=== PATIENT | male | born 1945 | race Caucasian/White ===

== ENCOUNTER 2017-10-22 17:31 | Emergency (ER) | payer MEDICARE ==
[2017-10-22 17:50] VITALS: TEMP 98
--- NOTE | 2017-10-22 18:27 | ED.PDOC ---
History of Present Illness - General Chief Complaint: General Stated Complaint: numbness in left ;eg Time Seen by Provider: 10/22/17 17:52 Source: patient, family Exam Limitations: no limitations - History of Present Illness Initial Comments: H/O LEGS FEELING COLD TO THE TOUCH AND WEAK LEGS/FEET. H/O 3 BACK SURGERIES. PT WAS OUTSIDE WORKING THIS AM FOR 1 HR. NOW THIS AFTERNOON HIS LLE HAS WORSENED FOOT DROP THAN NL. CHRONICALLY USES A CANE. PT WENT TO [facility] AND THEY WANTED TO R/O STROKE THUS SENT TO ER. PT DENIES ANY OTHER MOTOR OR SENSORY SX THAN LLE. Severity: moderate Improving Factors: nothing Worsening Factors: nothing Associated Symptoms: denies symptoms Allergies/Adverse Reactions: Allergies anti rattlesnake venum Allergy (Unknown, Uncoded 07/17/13 09:23) Home Medications: Ambulatory Orders Lisinopril 20 mg PO AM #0 08/11/13 Sertraline HCl 50 mg PO AM #0 08/11/13 Review of Systems - Review of Systems Constitutional: States: no symptoms reported EENTM: States: no symptoms reported Respiratory: States: no symptoms reported Cardiology: Denies: chest pain, edema, palpitations, syncope Gastrointestinal/Abdominal: States: no symptoms reported Genitourinary: States: no symptoms reported Musculoskeletal: States: other - NO PAIN IN LLE OR RLE. . Denies: joint pain, joint swelling Skin: States: other - CHRONICALLY COLD TO TOUCH, UNCHANGED. Neurological: States: pre-existing deficit, weakness. Denies: numbness, paresthesia Endocrine: States: no symptoms reported Hematologic/Lymphatic: States: no symptoms reported All other Systems: Reviewed and Negative Past Medical History (General) - Patient Medical History Hx Seizures: No Hx Stroke: No Hx Asthma: No Hx of COPD: No Hx Cardiac Disorders: No Hx Congestive Heart Failure: No Hx Pacemaker: No Hx Hypertension: Yes Hx Diabetes: No Hx Gastroesophageal Reflux: Yes Hx MRSA: No - Vaccination History Hx Influenza Vaccination: No Hx Pneumococcal Vaccination: No - Social History Hx Tobacco Use: Yes Hx Alcohol Use: - stated, "3 beers/day" Hx Substance Use: - Dips Hx Physical Abuse: No Hx Emotional Abuse: No Family Medical History - Family History Father Family History: Unknown Living Status: Unknown Physical Exam - Physical Exam General Appearance: Alert, Comfortable Ears, Nose, Throat: hearing grossly normal, normal ENT inspection Neck: full range of motion Respiratory: chest non-tender, lungs clear, normal breath sounds Cardiovascular/Chest: normal peripheral pulses, regular rate, rhythm, no edema Peripheral Pulses: radial,right: 2+, radial,left: 2+, dorsalis pedis,right: 1+, dorsalis pedis,left: 1+, posterior tibialis,right: 1+, posterior tibialis,left: 1+ Gastrointestinal/Abdominal: non tender, soft Extremity: normal range of motion, non-tender, no pedal edema, no calf tenderness, normal capillary refill, other - NL RLE EXAM MOTOR AND SENSORY. LLE EXAM SENSORY NL; PLANTAR FLEXION 5/5; DORSIFLEXION 4/5. BUE MOTOR 5/5 AND SENSORY NL. NTTP, NEG NATIVIDAD'S SIGN. Neurologic: diesel engine mechanic II-XII nml as tested, alert, normal mood/affect, oriented x 3, abnormal gait - AMBULATES WITH CANE. DTR: 3+: Patellar, left, Patellar, right Skin Exam: normal color, other - BLE COLD TO TOUCH, CHRONIC PER PT AND . Lymphatic: no adenopathy Progress - Results/Orders Results/Orders: HEAD CT NEG FOR ACUTE STROKE. I HAD A LOW CLINICAL SUSPICION, GIVEN THAT THIS IS A CHRONIC PROBLEM FOR HIM. HE HAS CHRONIC LLE WEAKNESS WHICH WAS WORSENED TODAY FROM BEING OUT IN THE COLD WEATHER SO I SUSPECT THE ETX IS EXACERBATION OF POOR CIRCULATION. I AM REFERRING HIM TO PCP FOR POSSIBLE BRAIN MRI AND POSSIBLE FURTHER EVALUATION FROM A VASCULAR SURGEON. IN ADDITION TO PALPATING, I ALSO DOPPLERED LLE DP/PT PULSES AND THEY WERE TRI-PHASIC. AGAIN, NO PAIN OR SOB; NOTHING TO CAUSE CONCERN FOR A DVT. SAFE FOR DC TO HOME WITH FOLLOW-UP. Departure - Departure Clinical Impression: Weakness of left lower extremity Disposition: Discharge to Home or Self Care Condition: Fair Departure Forms: ED Discharge - Pt. Copy, Patient Portal Self Enrollment Instructions: DI for Muscle Weakness Diet: resume usual diet Activity: increase activity as tolerated Referrals: ROCIO EDWARDS IV NURSING ASSISTANT [Primary Care Provider] - 1-2 Days Home Medications: Ambulatory Orders Lisinopril 20 mg PO AM #0 08/11/13 Sertraline HCl 50 mg PO AM #0 08/11/13 Additional Instructions: Please see your regular doctor this week, who may arrange further out-patient testing or therapy for your symptoms.
--- NOTE | 2017-10-22 19:16 | CT ---
PROCEDURE: Head HISTORY: LLE WEAKNESS Indication: Same as above Comparison: None Technique: CT of the head was done without intravenous contrast was done in the orthogonal planes. This exam was performed according to our departmental dose-optimization program, which includes automated exposure control, adjustment of the mA and/or KV according to the patient's size and/or use of iterative reconstruction technique. FINDINGS: There is no intracranial hemorrhage, midline shift mass effect or acute focal infarct. If clinical concern exists regarding an acute ischemic/vascular pathology being responsible for patient's symptomatology, an MRI of the brain is more sensitive than the current study, in ruling out such a possibility. There is good leung/white matter differentiation. The ventricular system is normal. The mastoid air cells are unremarkable . The paranasal sinuses show changes of chronic sinusitis . There is no visualization of acute fractures involving the calvarium or the skull base. IMPRESSION: There is no acute intracranial abnormality. Electronically signed by: Glenn Beverly MD 10/22/2017 7:15 PM [facility] Workstation: [id number]
[2017-10-22 20:11] VITALS: BP 165/80; O2SAT 97
== END 2017-10-22 20:11 | disposition home or self-care (01) ==
LOC: ER 17:31
DX: M62.81 Muscle weakness (generalized) (principal); I10 Essential (primary) hypertension; Z87.891 Personal history of nicotine dependence

== ENCOUNTER → 2018-01-01 | Outpatient (CLI) | payer MEDICARE ==
--- NOTE | 2018-01-02 07:59 | MRI ---
EXAM DESCRIPTION: Lumbar Spine w/o Contrast MRI. CLINICAL HISTORY: RADICULITIS DUE TO DISPLACEMENT OF LUMBAR DISC COMPARISON: MRI scan lumbar spine 02/04/2013. TECHNIQUE: Multiplanar, multiple standard sequences, non contrast MRI, lumbar spine. FINDINGS: L5-S1: Again noted is partial left laminectomy with granulation tissue exhibiting mass effect on the left ventral thecal sac and the descending left S1 nerve root and also on the left subarticular recess. No significant change since the prior study. Bilateral facets are stable. Anterior Modic type II endplate reactive changes anterior disc bulge and anterior spurs are stable. Near stenosis of the left foramen. Right foramen and right side of the canal are patent. Left anterior and lateral and posterior L5 Modic type II endplate reactive changes. L4-5: Disc desiccation. Minimal anterior bulging and endplate ridging. Trace retrolisthesis. Posterior broad-based 4 mm disc bulge. Bilateral flavum ligament hypertrophy and mild right facet arthrosis. Borderline mild canal stenosis. Bilateral moderate foraminal narrowing. Bright T2 signal in the right intraforaminal disc margin abutting the right L4 nerve. Well-circumscribed bright T1 and T2 signal in the right posterior superior L4 vertebral body. L3-4: Disc desiccation minimal anterior bulging and endplate ridging. Trace retrolisthesis. No posterior disc bulge. Bilateral flavum ligament hypertrophy and facet joint effusion. Moderate canal narrowing. Bilateral foramina are patent. L2-3: Marked disc space loss with minimal residual disc hydration. Diffuse Modic type II endplate reactive changes. Anterior disc bulge and endplate ridging. Trace retrolisthesis with posterior broad-based disc osteophyte complex bulging 4 mm and abutting the thecal sac. Minimal encroachment bilaterally on the subarticular lateral recesses and descending L3 nerves. Mild canal stenosis. Moderate left foraminal narrowing and mild right foraminal narrowing. L1-2: Minimal disc desiccation minimal anterior Modic type II endplate reactive changes and bulging disc and endplate ridging. Disc space maintained. Bilateral foramina are patent. Minimal arthrosis in the right facet. Otherwise posterior elements are unremarkable. No canal stenosis. T12-L1: Minimal disc space loss anterior disc bulge and endplate ridging and minimal Modic type II endplate reactive changes. No significant disc bulge posterior. Canal and foramina are patent. Conus terminates at this level. No significant scoliosis. Paravertebral soft tissues show minimal muscle atrophy. Ectasia of the abdominal aorta. Ingenious marrow replacement in the sacrum and iliac bones.. Normal marrow signal in the remaining vertebral bodies and the posterior elements. Vertebral bodies are not compressed at any level. IMPRESSION: 1. Stable left partial laminectomy at L5 and granulation tissue left posterior L5-S1 disc space and facet with mass effect on the ventral left thecal sac and the descending left S1 nerve and left subarticular recess. Stable spondylosis. 2. Increasing posterior L4-5 disc bulge with borderline mild canal stenosis. Annular fissure in the right posterior disc. Hemangioma in the L4 vertebral body is stable. 3. Increasing disc space loss at L2-3 and progressive spondylosis since the prior study. Multifactorial mild canal stenosis. Possible encroachment on the bilateral descending L3 nerves in the subarticular recesses. Correlate for bilateral L3 radiculopathy.. Electronically signed by: Ramana Qureshi MD 01/02/2018 7:57 AM CDT
== END ==
LOC: MRI 07:07
PROVIDERS: ATTEND Nurse Practitioner Family
DX: M51.27 Other intervertebral disc displacement, lumbosacral region (principal)

== ENCOUNTER → 2018-04-08 | Outpatient (CLI) | payer MEDICARE | LOC: GMAM 10:41 | PROVIDERS: ATTEND Family Medicine | DX: Z12.5 Encounter for screening for malignant neoplasm of prostate (principal) ==

== ENCOUNTER → 2018-05-12 | Outpatient (CLI) | payer MEDICARE | LOC: GMAM 14:24 | PROVIDERS: ATTEND Family Medicine | DX: R79.9 Abnormal finding of blood chemistry, unspecified (principal); R10.13 Epigastric pain; Z12.5 Encounter for screening for malignant neoplasm of prostate | CPT/HCPCS: 84439; 84443; G0103 ==

== ENCOUNTER 2018-05-30 13:00 | Emergency (ER) | payer MEDICARE ==
[2018-05-30 13:26] VITALS: TEMP 98.5
--- NOTE | 2018-05-30 13:39 | ED.PDOC ---
History of Present Illness - General Chief Complaint: General Stated Complaint: dizziness Time Seen by Provider: 05/30/18 13:39 Source: patient Exam Limitations: no limitations - History of Present Illness Initial Comments: Quentin Rodríguez 72 y/o male stated that felt dizzy as he look up the ceiling today felt also cold and clammy no passing out no N/V no blurry vision no tinnitus .But stated wears hearing aids.No dysartrhia,no weakness.[place] better on arrival here no longer feeling dizzy. Timing/Duration: 1-3 hours Severity: moderate Improving Factors: nothing Worsening Factors: other - see hpi Associated Symptoms: other - see hpi Allergies/Adverse Reactions: Allergies anti rattlesnake venum Allergy (Unknown, Uncoded 07/17/13 09:23) Home Medications: Ambulatory Orders Gabapentin 300 mg PO BEDTIME 05/30/18 Lisinopril 10 mg PO AM 05/30/18 Meclizine HCl [Meclizine 25] 50 mg PO TID PRN #30 tab 05/30/18 Omeprazole [Prilosec Cap] 20 mg PO ACBK 05/30/18 Sertraline HCl 50 mg PO BEDTIME 05/30/18 Review of Systems - Review of Systems Constitutional: States: no symptoms reported EENTM: States: no symptoms reported Respiratory: States: no symptoms reported Cardiology: States: no symptoms reported Gastrointestinal/Abdominal: States: no symptoms reported Genitourinary: States: no symptoms reported Musculoskeletal: States: no symptoms reported Neurological: States: other - dizzy Endocrine: States: no symptoms reported Past Medical History (General) - Patient Medical History Hx Seizures: No Hx Stroke: No Hx Asthma: No Hx of COPD: No Hx Cardiac Disorders: No Hx Congestive Heart Failure: No Hx Pacemaker: No Hx Hypertension: Yes Hx Diabetes: No Hx Gastroesophageal Reflux: Yes Hx MRSA: No Hx Other PMH: Yes - neuropathy Surgical History: other - knee ,back - Vaccination History Hx Influenza Vaccination: No Hx Pneumococcal Vaccination: No - Social History Hx Tobacco Use: Yes Hx Alcohol Use: - stated, "3 beers/day" Hx Substance Use: - Dips Hx Physical Abuse: No Hx Emotional Abuse: No Family Medical History - Family History Father Family History: Unknown Living Status: Unknown Physical Exam - Physical Exam General Appearance: Alert, Comfortable, No apparent distress Eye Exam: bilateral normal Ears, Nose, Throat: normal ENT inspection, normal pharynx, other - edentulous Neck: non-tender, full range of motion, supple Respiratory: chest non-tender, lungs clear, normal breath sounds Cardiovascular/Chest: normal peripheral pulses, regular rate, rhythm, no murmur Peripheral Pulses: radial,right: 2+, radial,left: 2+ Gastrointestinal/Abdominal: normal bowel sounds, non tender, soft, no organomegaly Back Exam: normal inspection, no CVA tenderness, no vertebral tenderness Extremity: non-tender, no pedal edema, no calf tenderness Neurologic: dry sander II-XII nml as tested, no motor/sensory deficits, alert, oriented x 3, other - pronator drift negative Skin Exam: normal color, warm/dry Lymphatic: no adenopathy Progress - Progress Progress: 05/30/18 15:23 Vital Signs - 8 hr 05/30/18 05/30/18 13:18 14:27 Temperature 98.5 F Pulse Rate [ 65 60 Right Brachial] Respiratory 20 16 Rate Blood Pressure 131/82 155/99 [Right Arm] O2 Sat by Pulse 96 96 Oximetry - Results/Orders Results/Orders: 05/30/18 13:45 EKG STAT Laboratory Results - last 24 hr 05/30/18 05/30/18 05/30/18 13:50 14:59 15:33 WBC 7.5 RBC 4.79 Hgb 16.0 Hct 47.8 MCV 99.7 H MCH 33.3 H MCHC 33.4 RDW 13.4 Plt Count 92 L MPV 11.5 H Absolute Neuts (auto) 3.70 Absolute Lymphs (auto) 2.60 Absolute Monos (auto) 0.80 Absolute Eos (auto) 0.20 Absolute Basos (auto) 0.10 Neutrophils % 50.1 Lymphocytes % 35.3 Monocytes % 10.8 H Eosinophils % 2.8 Basophils % 1.0 PT 9.4 INR 0.94 PTT (SP) 23.4 Sodium 134 L Potassium 4.4 Chloride 101 Carbon Dioxide 25 Anion Gap 12.4 BUN 17 Creatinine 1.00 BUN/Creatinine Ratio 17.0 Random Glucose 118 H Serum Osmolality 270.9 L Calcium 9.3 Magnesium 2.2 Total Bilirubin 0.7 Direct Bilirubin < 0.1 Indirect Bilirubin 0.6 AST 20 ALT 21 Alkaline Phosphatase 52 Creatine Kinase 101 CK-MB (CK-2) 3.1 CK-MB (CK-2) % Not Reportable Troponin I < 0.02 < 0.02 Serum Total Protein 7.3 Albumin 4.2 Urine Color Yellow Urine Appearance Clear Urine pH 5.5 Ur Specific Shelby <= 1.005 Urine Protein Negative Urine Glucose (UA) Negative Urine Ketones Negative Urine Blood Negative Urine Nitrite Negative Urine Bilirubin Negative Urine Urobilinogen 0.2 Ur Leukocyte Esterase Negative Urine RBC 0 Urine WBC 0 Ur Epithelial Cells 0 Urine Bacteria 0 - EKG/XRAY/CT EKG: Sinus, no ST T wave changes Comments: HR-[address] Ordered: Yes - no acute abnormalities Departure - Departure Clinical Impression: Vertigo, History of peripheral neuropathy Time of Disposition: 16:30 Disposition: Discharge to Home or Self Care Condition: Fair Departure Forms: ED Discharge - Pt. Copy, Patient Portal Self Enrollment Instructions: Vestibular Exercises, Vertigo (a Type of Dizziness) (DC) Referrals: Carl Norman MD [Primary Care Provider] - 1-2 Weeks Prescriptions: Meclizine HCl [Meclizine 25] 50 mg PO TID PRN #30 tab PRN Reason: Dizziness Home Medications: Ambulatory Orders Gabapentin 300 mg PO BEDTIME 05/30/18 Lisinopril 10 mg PO AM 05/30/18 Meclizine HCl [Meclizine 25] 50 mg PO TID PRN #30 tab 05/30/18 Omeprazole [Prilosec Cap] 20 mg PO ACBK 05/30/18 Sertraline HCl 50 mg PO BEDTIME 05/30/18 Additional Instructions: Return to emergency room as needed;Followup with primary Md 02 june 2018 continue with all home medication
[2018-05-30] MEDS ORDERED: SODIUM CHLORIDE 0.9% 500ML 500 ML IVS ONE (13:41)
--- NOTE | 2018-05-30 14:36 | CT ---
EXAM DESCRIPTION: Head CLINICAL HISTORY: dizzy COMPARISON: Previous head CT October 22, 2017 TECHNIQUE: Noncontrast head CT was performed with routine protocol. FINDINGS: Normal leung-white matter differentiation. Ventricles and sulci are normal for age. No change since the previous study. No high density hemorrhage, focal edema or shift of the midline. No sulcal effacement. Normal orbital contents. Basilar cisterns appear clear. Intact calvarium with no fracture or lytic lesion. Normal aeration of tympanic cavities and mastoid air cells. No fluid levels in the paranasal sinuses. Skull base appears intact. Symmetrical internal auditory canals. Coronal and sagittal reformatted images confirm the findings. IMPRESSION: No acute intracranial pathologic process. This exam was performed according to our departmental dose-optimization program, which includes automated exposure control, adjustment of the mA and/or kV according to patient size and/or use of iterative reconstruction technique. Total DLP equals 967.47 mGycm. Electronically signed by: Saul Mendez MD 05/30/2018 2:35 PM CDT
[2018-05-30 16:48] VITALS: BP 149/81; O2SAT 98
== END 2018-05-30 16:48 | disposition home or self-care (01) ==
LOC: ER 13:00
DX: R42 Dizziness and giddiness (principal); G62.9 Polyneuropathy, unspecified; I44.0 Atrioventricular block, first degree; I10 Essential (primary) hypertension; K21.9 Gastro-esophageal reflux disease without esophagitis; F17.220 Nicotine dependence, chewing tobacco, uncomplicated; Z79.899 Other long term (current) drug therapy; Z88.8 Allergy status to other drugs, medicaments and biological substances
CPT/HCPCS: 36415; 70450; 80048; 80076; 81001; 82550; 82553; 84484; 85025; 85610; 85730; 93005; J7040

== ENCOUNTER → 2019-03-30 | Outpatient (CLI) | payer MEDICARE ==
--- NOTE | 2019-03-30 10:01 | CT ---
EXAM DESCRIPTION: Chest w/o Contrast CLINICAL HISTORY: 73 years Male, ABNL CHEST XRAY DONE ON 03-24-19 COMPARISON: Prior chest x-ray dated 03/24/2019. TECHNIQUE: Contiguous thin section axial images through the chest were obtained without the administration of intravenous contrast. Sagittal and coronal reconstructions were reviewed. FINDINGS: The visualized thyroid gland and supraclavicular region appear normal. Few subcentimeter mediastinal lymph nodes are identified. No abnormally enlarged axillary or hilar lymphadenopathy. Trachea is midline and the central tracheobronchial tree is patent. Focal atelectasis is noted in the right middle lobe adjacent to the cardiophrenic angle. This probably corresponds to the suspected mass identified on prior chest radiograph. No definite nodule is visualized. Mild subsegmental atelectasis is noted in the bilateral lower lobes. No evidence of pleural effusions. The heart is normal in size with no pericardial effusion. Mild aneurysmal dilatation of the proximal descending thoracic aorta measuring up to 3.2 cm. Mild atherosclerotic disease is identified. The superior vena cava is normal in size and caliber. Mild to moderate coronary artery atherosclerosis. The esophagus appears normal throughout its visualized length. The liver demonstrates fatty infiltration. No other abnormality is noted in the imaged upper abdomen. [id number] degenerative changes identified throughout the visualized spine. IMPRESSION: 1. Focal atelectasis is identified in the right middle lobe adjacent to the cardiophrenic angle. This corresponds to the abnormality identified on prior chest radiograph. No definite nodule is visualized. 2. Mild aneurysmal dilatation of the proximal descending thoracic aorta measuring up to 3.2 cm in greatest dimension. Follow-up CT chest is recommended in one year to document stability. This exam was performed according to our departmental dose-optimization program, which includes automated exposure control, adjustment of the mA and/or kV according to patient size and/or use of iterative reconstruction technique. Electronically signed by: Aleksandra Gross MD 03/30/2019 9:58 AM CDT
== END ==
LOC: CT 08:04
PROVIDERS: ATTEND Family Medicine
DX: J98.11 Atelectasis (principal); I71.2 Thoracic aortic aneurysm, without rupture

== ENCOUNTER → 2019-04-08 | Outpatient (CLI) | payer MEDICARE ==
--- NOTE | 2019-04-08 15:03 | CT ---
EXAM DESCRIPTION: Abdomen/Pelvis w/Contrast: Computed Tomography. CLINICAL HISTORY: 73 years Male Thrombocytopenia . Liver steatosis on previous chest CT scan. COMPARISON: CT scan of the chest 03/30/2019. TECHNIQUE: Spiral-axial scans at 5 x 5 mm intervals through the abdomen and pelvis, after nonionic IV contrast and water-soluble oral contrast. Coronal and sagittal 2.0 mm reconstructions. No delayed scans. No adverse reactions. Total Exam DLP: 1263.20 mGy-cm. This exam was performed according to our departmental dose-optimization program which includes automated exposure control, adjustment of the mA and/or kV according to patient size and/or use of iterative reconstruction technique; to reduce radiation dose to as low as reasonably achievable (ALARA). FINDINGS: Liver, Stomach, Spleen, Adrenal Glands: Small subcentimeter cyst abutting the gallbladder fossa and abutting the capsule of the liver. Normal size. No abnormal enhancement. Stomach negative. Solid organs are unremarkable. Pancreas, Gallbladder, Ducts: Gallbladder and ducts negative. Minimal fatty infiltration of the pancreas. Kidneys and Ureters: Nodularity and thickening of the superior lateral cortex of the right kidney. 2 cm cyst in the upper collecting system. No hydronephrosis or radiodense stones bilaterally. Mesentery: Negative. Aorta: Moderate atherosclerotic calcification. Small Bowel: Unremarkable. Terminal Ileum/Cecum: Normal caliber of these organs in the appendix. Normal density of surrounding fat. Colon: Diffuse fecal material. Moderate redundancy of the sigmoid colon. Few diverticula around the splenic flexure with no complications. Pelvic Organs: Enlarged prostate gland measuring 5.2 x 4.7 cm in the axial plane and 5.2 cm craniocaudal. Bilateral calcifications. Pelvic calcifications. Minimal thickening of the urinary bladder wall. Spine and Bony Pelvis: Spondylosis and disc space loss L5-S1, and L2-L3, and several levels of the thoracic spine. Bilateral hip joint arthrosis. Abdominal Wall/Back Soft Tissues: Diastases of the umbilicus but not containing bowel. Small fatty left inguinal hernia not containing bowel. IMPRESSION: 1. Small subcentimeter cyst subcapsular in the right hepatic lobe abutting the gallbladder fossa. No abnormal enhancement. This examination does not confirm hepatic steatosis. Minimal fatty infiltration of the pancreas. Normal ducts. Smooth capsule. No ascites. 2. Scarring and loss of cortex superior lateral right kidney may be related to prior infarct. 2 cm intrarenal cyst. Otherwise negative. 3. Mild diverticulosis around the splenic flexure. Mild to moderate constipation in the colon. 4. Enlarged prostate gland. Minimal thickening of the urinary bladder wall. Electronically signed by: Ramana Qureshi MD 04/08/2019 3:01 PM CDT
== END ==
LOC: LAB.O 08:25
PROVIDERS: ATTEND Internal Medicine Hematology & Oncology
DX: J98.11 Atelectasis (principal); I77.810 Thoracic aortic ectasia; D69.9 Hemorrhagic condition, unspecified

== ENCOUNTER → 2019-04-16 | Outpatient (CLI) | payer MEDICARE | LOC: GMAM 16:58 | PROVIDERS: ATTEND Family Medicine | DX: R97.20 Elevated prostate specific antigen [PSA] (principal) ==

== ENCOUNTER → 2019-09-17 | Outpatient (CLI) | payer MEDICARE | LOC: GMAM 15:03 | PROVIDERS: ATTEND Family Medicine | DX: R94.6 Abnormal results of thyroid function studies (principal); I10 Essential (primary) hypertension; R97.20 Elevated prostate specific antigen [PSA] ==

== ENCOUNTER → 2019-10-22 | Outpatient (CLI) | payer MEDICARE | LOC: GMAM 15:10 | PROVIDERS: ATTEND Family Medicine | DX: R94.6 Abnormal results of thyroid function studies (principal); R94.2 Abnormal results of pulmonary function studies ==

== ENCOUNTER → 2020-07-27 | Outpatient (CLI) | payer MEDICARE | LOC: GMAM 14:30 | PROVIDERS: ATTEND Family Medicine | DX: R06.02 Shortness of breath (principal); R53.83 Other fatigue; E78.2 Mixed hyperlipidemia; I10 Essential (primary) hypertension ==

== ENCOUNTER → 2020-08-05 | Outpatient (CLI) | payer MEDICARE ==
--- NOTE | 2020-08-05 14:22 | MRI ---
EXAM DESCRIPTION: Brain w/oContrast CLINICAL HISTORY: UNSPECIF SYMPTOMS AND SIGNS INVOLVING COGNITIVE FUNCTIONS COMPARISON: CT head 05/30/2018 TECHNIQUE: Non contrast MRI of the brain is performed according to our usual protocol including multiplanar multi sequence technique. FINDINGS: Susceptibility artifact from a piece of metal in the patient's frontal scalp region which limits evaluation on some sequences. No definite evidence of hemorrhage, mass effect, restricted diffusion, or acute infarction. There is normal configuration of the ventricles and sulci. Moderate generalized volume loss. Mild T2/FLAIR hyperintensities in the supratentorial white matter. No abnormal extra-axial fluid collections are present. Normal flow voids are present. The calvarium is intact. Visualized paranasal sinuses and mastoid air cells are clear. IMPRESSION: 1. Slightly limited evaluation due to artifact. No acute intracranial abnormality. 2. Senescent changes. Electronically signed by: Francisco Hyman MD 08/05/2020 2:20 PM CDT
--- NOTE | 2020-08-05 15:50 | CT ---
EXAM DESCRIPTION: Chest w/Contrast : Computed Tomography. CLINICAL HISTORY: 74 years Male SHORTNESS OF BREATH COMPARISON: CT scan of the chest without contrast March 2019. TECHNIQUE: Spiral-axial scans at 5 mm intervals through the lungs and thorax with IV contrast. 2.5 mm lung algorithm axial reconstructions. Coronal and sagittal 2.0 Mm reconstructions. No adverse reactions. Total Exam DLP: 809 mGy-cm. This exam was performed according to our departmental dose-optimization program which includes automated exposure control, adjustment of the mA and/or kV according to patient size and/or use of iterative reconstruction technique; to reduce radiation dose to as low as reasonably achievable (ALARA). Nodule measurements under 10 mm are given as mean value of 3 axes diameters. FINDINGS: Lungs and large airways: Minimal subpleural basilar dependent atelectasis bilaterally. Bilateral lower lobe pleural-parenchymal scarring. No abnormal nodules and no mass. No acute or focal infiltrate. Pleural spaces: Bilateral thickening. No acute process. Mediastinum and [place]: Small soft tissue masses with no dominant solid or enhancing mass. Stable since the prior study. Great vessels and Heart: Atherosclerotic calcification aorta with coronary artery calcification. Stable since the prior study. Soft tissues of neck base, axillae, and chest wall: Normal size axillary lymph nodes. No abnormal enhancement and no dominant soft tissue mass. No interval change. Upper abdomen: Normal enhancement of the gallbladder, spleen, adrenal glands and pancreas. Large cyst in the upper pole of the right kidney extending to the collecting system with thinning of the cortex and small radiodense stone. 3 sub-capsular hepatic lesions with unusual contrast enhancement characteristics which may represent hemangiomas. These are visualized on the prior abdomen study in April 2019 with IV contrast but different timing, and appearance. 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 IMPRESSION: 1. Subpleural basilar dependent atelectasis and bilateral lower lobe parenchymal scarring with no abnormal nodules or masses. 2. Unusually enhancing lesions in the liver, which could represent hemangiomas. Recommend follow-up triple phase hepatic CT scan without and with IV contrast or MRI scan of the liver without and with gadolinium IV contrast. Electronically signed by: Ramana Qureshi MD 08/05/2020 3:48 PM CDT
== END ==
LOC: MRI 10:25
PROVIDERS: ATTEND Family Medicine
DX: G31.1 Senile degeneration of brain, not elsewhere classified (principal); R41.9 Unspecified symptoms and signs involving cognitive functions and awareness; J98.11 Atelectasis; J98.4 Other disorders of lung; K76.9 Liver disease, unspecified

== ENCOUNTER → 2020-08-24 | Outpatient (CLI) | payer MEDICARE ==
--- NOTE | 2020-08-24 15:54 | CT ---
EXAM DESCRIPTION: Abdomen/Pelvis w/wo Contrast CLINICAL HISTORY: 74 years Male, other specified disease of liver COMPARISON: 08 April 2019 TECHNIQUE: Transaxial images were obtained with without and with intravenous contrast media and without oral contrast media. Sagittal and coronal reconstruction was performed.This exam was performed according to our departmental dose-optimization program, which includes automated exposure control, adjustment of the mA and/or kV according to patient size and/or use of iterative reconstruction technique. FINDINGS: The lung bases are clear. The exam reveals a peripherally enhancing mass in the dome of the left lobe of the liver in the medial segment consistent with a hemangioma. It fills in completely on delayed imaging. It measures 3 cm in diameter. A second lesion is observed near the gallbladder fossa and measures 1.52 cm in diameter. Its also consistent with a hemangioma. A small cyst is observed in the inferior liver adjacent to the gallbladder measuring 7.4 mm in diameter. The gallbladder is normal in appearance. No biliary ductal dilatation is observed. The spleen is unremarkable. No adrenal masses are detected. The pancreas is normal in appearance. Imaging of the kidneys reveal no evidence of hydronephrosis solid mass or calcification. Peripelvic cysts are observed on the patient's right. Calcific atherosclerotic changes observed in the abdominal aorta without evidence of aneurysmal dilatation. The appendix is identified and is normal in appearance. No free pelvic fluid is observed. Prostatic hypertrophy is noted. A periumbilical hernia is observed containing fat. Degenerative changes are observed in the lumbar spine. IMPRESSION: 1. 2 hemangiomas are observed in the left lobe of liver. 2. A tiny cyst is observed in the inferior aspect of the right lobe of liver adjacent to the gallbladder fossa. 3. Parapelvic cysts is observed on the right kidney 4. Prostatic hypertrophy 5. Periumbilical hernia containing fat Electronically signed by: Girish Vyas MD 08/24/2020 3:53 PM [employer]
== END ==
LOC: CT 08:05
PROVIDERS: ATTEND Family Medicine
DX: K76.89 Other specified diseases of liver (principal); D18.03 Hemangioma of intra-abdominal structures; K42.9 Umbilical hernia without obstruction or gangrene; N40.0 Benign prostatic hyperplasia without lower urinary tract symptoms; N28.1 Cyst of kidney, acquired